=== PATIENT | female | born 1975 | race Caucasian/White ===

== ENCOUNTER 2020-10-04 11:07 | Emergency (ER) | payer OTHER ==
[~2020-10-04] VITALS: Ht 160 cm; Wt 107.1 kg
--- NOTE | 2020-10-04 11:31 | NUR ---
PT COMES IN C/O RLQ PELVIC PAIN. PT STATES "I WAS SEEN AT [facility], [place] ON SATURDAY. THEY DID IMAGING AND SAID I HAD A CYST. 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 I CANT WAIT Saturday. IM IN TOO MUCH PAIN. EVEN AFTER TAKING MY PAIN MEDICATION IT HURTS". PT C/O N/V X 1, DECREASE IN APPETITE, AND DIFFICULTY URINATING. URINE SAMPLE ATTEMPTED. PT UNABLE TO URINATE AT THIS TIME. MONITORS CONNECTED. CALL LIGHT W/IN REACH
--- NOTE | 2020-10-04 11:31 | NUR ---
PROVIDER AT BEDSIDE FOR ASSESSMENT AND TO DISCUSS PLAN OF CARE
[2020-10-04] MEDS ORDERED: MORPHINE SULFATE 4 MG/ML, 1ML ONE ×2 (11:45→14:13)
[2020-10-04] MEDS ORDERED: ONDANSETRON 2MG/ML, 2ML ONE (11:45)
[2020-10-04] MEDS ORDERED: SODIUM CHLORIDE FLUSH 10ML SYR IVF ONE (12:00)
[2020-10-04] MEDS ORDERED: ONDANSETRON 2MG/ML, 2ML IVPush ONE (12:00)
[2020-10-04] MEDS: MORPHINE SULFATE 4 MG/ML, 1ML IVPush PRN ×2 (12:02→14:15)
--- NOTE | 2020-10-04 12:26 | NUR ---
PT RESTING ON GURNEY W/MOM AT BEDSIDE. IV ACCESS OBTAINED. LABS COLLECTED. ORDERED MEDICATIONS ADMINISTERED. PT STATES IMPROVED RIGHT LOWER QUADRANT ABD PAIN AT 3-/10. VSS. NAD. CALL LIGHT W/IN REACH.
[2020-10-04 12:38] LABS: BASOPHILS % (AUTO) 0 % (0-1); EOSINOPHILS % (AUTO) 1 % (1-7); LYMPHOCYTES % (AUTO) 9 % (22-44); MEAN CORPUSCULAR HEMOGLOBIN 29.6 pg (27.0-34.8); MEAN CORPUSCULAR HGB CONC 34.2 g/dL (32.4-35.8); MEAN PLATELET VOLUME 7.9 fL (7.4-10.4); MONOCYTES % (AUTO) 5 % (2-9); NEUTROPHILS % (AUTO) 85 % (42-75); PLATELET COUNT 239 x10^3/uL (130-400); RED CELL DISTRIBUTION WIDTH 13.1 % (9.6-15.2)
[2020-10-04 12:39] LABS: MD NO
[2020-10-04 12:40] LABS: ALBUMIN 3.8 g/dL (3.4-5.0); ANION GAP 8 mmol/L (5-15); CALCIUM 9.2 mg/dL (8.5-10.1); CHLORIDE 107 mmol/L (98-107)
[2020-10-04 12:45] LABS: CREATININE 0.91 mg/dL (0.55-1.02)
[2020-10-04 12:46] LABS: ALANINE AMINOTRANSFERASE 31 U/L (12-78); ALKALINE PHOSPHATASE 108 U/L (45-117); BILIRUBIN,TOTAL 1.1 mg/dL (0.2-1.0)
[2020-10-04] MEDS ORDERED: MONT10TA17 PO (12:53)
[2020-10-04] MEDS ORDERED: LEVO5TAB2 PO (12:53)
--- NOTE | 2020-10-04 12:54 | NUR ---
PT DAILY MEDICATIONS UPDATED IN [facility]. PREFERRED PHARMACY UPDATED. MED REC COMPLETE
--- NOTE | 2020-10-04 13:31 | NUR ---
PT AMUBLATED TO BATHROOM W/STEADY GAIT TO COLLECT UA.
[2020-10-04 13:58] LABS: MICROSCOPIC INDICATED
--- NOTE | 2020-10-04 14:07 | NUR ---
PT RESTING ON GURNEY. UA COLLECTED. PT STATES INCREASE IN PAIN TO 6/10. VSS. NAD. CALL LIGHT W/I REACH. WILL CONTINUE TO MONITOR
--- NOTE | 2020-10-04 14:19 | NUR ---
PT RESTING ON GURNEY. ORDERED PAIN MEDICATION ADMINISTERED. WILL REASSESS AND CONTINUE TO MONITOR. VSS. CALL LIGHT W/I REACH
[2020-10-04] MEDS ORDERED: KETOROLAC 30 MG/1 ML ONE (15:14)
--- NOTE | 2020-10-04 15:21 | NUR ---
PT RESTING ON JO ANN. DR MORAN AT BEDSIDE TO DISCUSS RESULTS AND PLAN OF CARE. PT STATES CONTINUED PAIN. PT MEDICATED PER ORDERS. VSS. NAD. CALL LIGHT W/IN REACH.
[2020-10-04] MEDS ORDERED: KETOROLAC 30 MG/1 ML IVPush ONE (15:30)
--- NOTE | 2020-10-04 15:34 | NUR ---
PT TO CT
[2020-10-04] MEDS ORDERED: OMNIPAQUE 350 MG/ML, 100ML BOTTLE ONE (15:41)
--- NOTE | 2020-10-04 15:45 | NUR ---
PT RETURNED FROM CT. MONITORS RECONNECTED BY INCUBATOR TENDER. PT RESTING COMFORTABLY ON GURNEY. VSS. NAD. CALL LIGHT W/I REACH
[2020-10-04 16:20] VITALS: BP 106/82
--- NOTE | 2020-10-04 16:21 | NUR ---
break marco Rhodes at bedside to discuss POC/discharge.
== END 2020-10-04 16:41 | disposition home or self-care (01) ==
LOC: ED 13:19
DX: R10.31 Right lower quadrant pain (principal); R11.2 Nausea with vomiting, unspecified; Z87.891 Personal history of nicotine dependence
CPT/HCPCS: 36415; 74177; 80053; 81001; 84703; 85025; 96374; 96375; 96376; 99285; J1885; J2270; J2405; Q9967